=== PATIENT | female | born 1990 | race Caucasian/White ===

== ENCOUNTER 2019-06-26 21:14 | Emergency (ER) | payer MEDICAID ==
[~2019-06-26] VITALS: Ht 160 cm; Wt 104.3 kg
[2019-06-26 21:41] VITALS: BP 153/93
== END 2019-06-26 23:39 | disposition left against medical advice (07) ==
LOC: ER 21:18
DX: R05 Cough (principal); Z53.21 Procedure and treatment not carried out due to patient leaving prior to being seen by health care provider

== ENCOUNTER 2019-08-03 01:01 | Emergency (ER) | payer MEDICAID ==
[~2019-08-03] VITALS: Ht 160 cm; Wt 99.8 kg
[2019-08-03] MEDS ORDERED: KETOROLAC TROMETH 60MG/2ML VIAL IM ONE (03:30)
[2019-08-03] MEDS ORDERED: cefTRIAXone SOD 1,000 MG VL IM ONE (03:30)
[2019-08-03 03:40] VITALS: BP 148/106
== END 2019-08-03 04:07 | disposition home or self-care (01) ==
LOC: ER 01:03
DX: L02.411 Cutaneous abscess of right axilla (principal); Z88.1 Allergy status to other antibiotic agents
CPT/HCPCS: 96372; 99283; J0696; J1885